=== PATIENT | female | born 1940 | race Hispanic/Latino ===

== ENCOUNTER 2018-04-13 03:01 | Observation (INO) | payer OTHER ==
[2018-04-13] MEDS ORDERED: ONDANSETRON 4 MG/2 ML VIAL ONE ×2 (03:26→07:44)
[2018-04-13] MEDS ORDERED: NA CHLORIDE 0.9% 1,000 ML ONE ×2 (03:26→18:03)
[2018-04-13] MEDS ORDERED: MORPHINE 4 MG/ML SYR ONE (03:26)
[2018-04-13 03:40] LABS: Absolute Lymphocytes (CBC) 2.4 K/uL (0.7-4.9); Absolute Monocytes 0.8 K/uL (0.1-1.3); Absolute Neutrophil 8.2 K/uL (1.8-8.0); Basophils % 0.4 % (0-1.3); Eosinophils % 0.6 % (0-4.4); Hematocrit 38.5 % (36.0-45.0); MCH 30.3 pg (27.0-35.0); MCV 90.8 fL (80-100); Monocytes % 7.2 % (3.3-12.3); RBC Red Blood Cell Count 4.24 M/uL (3.86-4.86)
[2018-04-13 03:57] LABS: Potassium 3.4 mEq/L (3.6-5.0)
[2018-04-13 04:03] LABS: Albumin 4.3 g/dL (3.2-5.5); Bilirubin Direct 0.1 mg/dL (0-0.2); Bilirubin Total 0.5 mg/dL (0.3-1.2); Protein, Total 7.6 g/dL (6.0-8.3)
--- NOTE | 2018-04-13 04:46 | ER ---
Nurse's Notes [facility] Name: Isha Tran Age: 77 yrs Sex: Female : 1940 Arrival Date: 04/13/2018 Time: 03:04 Bed 7 Private MD: Joselito Nguyen E Diagnosis: Left ureteral calculus with hydronephrosis Presentation: 04/13 03:15 Presenting complaint: Patient states: I was diagnosed two weeks ago with a 5mm kidney tl2 stone and it hasn't passed and I'm in a lot of pain. Reports L sided flank pain. Transition of care: patient was not received from another setting of care. Onset of symptoms was March 30, 2018. Initial Sepsis Screen: Does the patient meet any 2 criteria? No. Patient's initial sepsis screen is negative. Does the patient have a suspected source of infection? No. Patient's initial sepsis screen is negative. Care prior to arrival: None. 03:15 Method Of Arrival: Wheelchair tl2 03:15 Acuity: LAWRENCE 3 tl2 Triage Assessment: 03:18 General: Appears in no apparent distress. uncomfortable, Behavior is cooperative, tl2 appropriate for age, anxious. Pain: Complains of pain in left flank Pain radiates to left lower quadrant. Neuro: Level of Consciousness is awake, alert, obeys commands, Oriented to person, place, time, situation. Cardiovascular: Denies chest pain. Respiratory: Airway is patent Respiratory effort is even, unlabored, Respiratory pattern is regular, symmetrical. GI: Reports nausea. :. Derm: Skin is pink, warm \T\ dry. Historical: - Allergies: 03:18 No Known Allergies; tl2 - Home Meds: 03:18 duloxetine 30 mg Oral cpDR 1 cap once daily [Active]; tl2 - PMHx: 03:18 Depression; tl2 - PSHx: 03:18 Cholecystectomy; tl2 - Immunization history:: Adult Immunizations up to date. - Social history:: Smoking status: Patient/guardian denies using tobacco. Screenin:20 Abuse screen: Denies threats or abuse. Nutritional screening: No deficits noted. tl2 Tuberculosis screening: No symptoms or risk factors identified. Fall Risk None identified. Assessment: 03:20 General: see triage assessment. tl2 07:33 GI: Bowel sounds present X 4 quads. Abd is soft X 4 quads. tw2 07:40 Reassessment: Patient appears in no apparent distress at this time. No changes from tw2 previously documented assessment. Patient and/or family updated on plan of care and expected duration. Pain level reassessed. Vital Signs: 03:18 BP 177 / 85; Pulse 79; Resp 18; Temp 97.9(O); Pulse Ox 100% on R/A; Weight 68.04 kg; tl2 Height 5 ft. 4 in. (162.56 cm); Pain 9/10; 04:19 BP 178 / 68; Pulse 72; Resp 17; Pulse Ox 98% ; Pain 2/10; tl1 06:26 BP 137 / 67; Pulse 61; Resp 18; Pulse Ox 98% on R/A; tl1 03:18 Body Mass Index 25.75 (68.04 kg, 162.56 cm) tl2 ED Course: 03:04 Patient arrived in ED. es 03:05 Joselito Nguyen MD is Private Physician. es 03:06 Franco Silva MD is Attending Physician. pkl 03:15 Maya Little, TAVON is Primary Nurse. tl1 03:17 Triage completed. tl2 03:18 Arm band placed on right wrist. tl2 03:20 Patient has correct armband on for positive identification. Placed in gown. Bed in low tl2 position. Call light in reach. Side rails up X 1. Adult w/ patient. 03:20 Inserted saline lock: 20 gauge in right antecubital area, using aseptic technique. tl2 Blood collected. placed by quan Murphy. 03:[address] cw1 03:40 CT completed. Patient tolerated procedure well. Patient moved back from CT. vm2 03:48 CT Stone Protocol In Process Unspecified. EDMS 04:45 Annette Ga MD is Hospitalizing Provider. pkl 07:10 Primary Nurse role handed off by Maya Little, TAVON mw2 07:32 No provider procedures requiring assistance completed. Patient admitted, IV remains in tw2 place. Administered Medications: 03:30 Drug: morphine 4 mg Route: IVP; Site: right antecubital; tl2 03:31 Drug: Zofran 4 mg Route: IVP; Site: right antecubital; tl2 03:31 Drug: NS 0.9% 500 ml Route: IV; Rate: bolus; Site: right antecubital; tl2 03:31 Drug: NS 0.9% 1000 ml Route: IV; Rate: 100 ml/hr; Site: right antecubital; tl2 07:45 Follow up: IV Status: Infusion continued upon admission tw2 07:44 Drug: Zofran 4 mg Route: IVP; Site: right antecubital; tw2 07:45 Follow up: Response: No adverse reaction tw2 Outcome: 04:46 Decision to Hospitalize by Provider. pkl 07:33 Admitted to Med/surg accompanied by nurse, via wheelchair, room 430, with chart, Report tw2 called to TAVON Harmon 07:33 Condition: stable 07:33 Instructed on the need for admit. 07:46 Patient left the ED. tw2 Signatures: Dispatcher [employer] Franco Lott MD MD [facility] Neela Bateman Crystal cw1 Maya Little RN RN tl1 Ermelinda Banuelos RN RN tw2 Harini Donato RN RN tl2 Isabel Manzanares [facility]
--- NOTE | 2018-04-13 04:46 | EDPHYS ---
Physician Documentation [facility] Name: Isha Tran Age: 77 yrs Sex: Female : 1940 Arrival Date: 04/13/2018 Time: 03:04 Bed 7 Private MD: Joselito Nguyen E ED Physician Franco Silva HPI: 04/13 03:24 This 77 yrs old Female presents to ER via Wheelchair with complaints of pkl Possible Kidney Stone. 03:24 The patient complains of pain in the left flank. The pain radiates to the left lower pkl quadrant. Onset: The symptoms/episode began/occurred 2 week(s) ago, and became worse just prior to arrival. Patient was diagnosed with a 5 mm ureteral calculus 2 weeks ago while visiting [facility]. Patient said stone has not passed yet.. Historical: - Allergies: 03:18 No Known Allergies; tl2 - Home Meds: 03:18 duloxetine 30 mg Oral cpDR 1 cap once daily [Active]; tl2 - PMHx: 03:18 Depression; tl2 - PSHx: 03:18 Cholecystectomy; tl2 - Immunization history:: Adult Immunizations up to date. - Social history:: Smoking status: Patient/guardian denies using tobacco. ROS: 03:24 Eyes: Negative for injury, pain, redness, and discharge, ENT: Negative for injury, pkl pain, and discharge, Neck: Negative for injury, pain, and swelling, Cardiovascular: Negative for chest pain, palpitations, and edema, Respiratory: Negative for shortness of breath, cough, wheezing, and pleuritic chest pain, Abdomen/GI: Negative for abdominal pain, nausea, vomiting, diarrhea, and constipation. 03:24 Back: Positive for flank pain, on the left. 03:24 : Negative for urinary symptoms. 03:24 MS/extremity: Negative for acute changes. 03:24 Skin: Negative for rash. 03:24 Neuro: Negative for altered mental status. Exam: 03:24 Head/Face: Normocephalic, atraumatic. Eyes: Pupils equal round and reactive to light, pkl extra-ocular motions intact. Lids and lashes normal. Conjunctiva and sclera are non-icteric and not injected. Cornea within normal limits. Periorbital areas with no swelling, redness, or edema. ENT: Nares patent. No nasal discharge, no septal abnormalities noted. Tympanic membranes are normal and external auditory canals are clear. Oropharynx with no redness, swelling, or masses, exudates, or evidence of obstruction, uvula midline. Mucous membranes moist. Neck: Trachea midline, no thyromegaly or masses palpated, and no cervical lymphadenopathy. Supple, full range of motion without nuchal rigidity, or vertebral point tenderness. No Meningismus. Chest/axilla: Normal chest wall appearance and motion. Nontender with no deformity. No lesions are appreciated. Cardiovascular: Regular rate and rhythm with a normal S1 and S2. No gallops, murmurs, or rubs. Normal PMI, no JVD. No pulse deficits. Respiratory: Lungs have equal breath sounds bilaterally, clear to auscultation and percussion. No rales, rhonchi or wheezes noted. No increased work of breathing, no retractions or nasal flaring. Abdomen/GI: Soft, non-tender, with normal bowel sounds. No distension or tympany. No guarding or rebound. No evidence of tenderness throughout. 03:24 Back: pain, that is moderate, of the left flank. 03:24 Musculoskeletal/extremity: Exam is negative for acute changes. 03:24 Skin: Exam negative for rash. 03:24 Neuro: Orientation: is normal, Mentation: is normal, Memory: Cranial nerves: grossly normal, Motor: is normal. Vital Signs: 03:18 BP 177 / 85; Pulse 79; Resp 18; Temp 97.9(O); Pulse Ox 100% on R/A; Weight 68.04 kg; tl2 Height 5 ft. 4 in. (162.56 cm); Pain 9/10; 04:19 BP 178 / 68; Pulse 72; Resp 17; Pulse Ox 98% ; Pain 2/10; tl1 06:26 BP 137 / 67; Pulse 61; Resp 18; Pulse Ox 98% on R/A; tl1 03:18 Body Mass Index 25.75 (68.04 kg, 162.56 cm) tl2 MDM: 03:06 Patient medically screened. pkl 04:44 Data reviewed: vital signs, nurses notes, lab test result(s), radiologic studies, CT pkl scan. 04/13 03:15 Order name: Amylase, Serum; Complete Time: 04:05 tl1 04/13 03:15 Order name: Basic Metabolic Panel; Complete Time: 04:05 tl1 04/13 03:15 Order name: CBC with Diff; Complete Time: 04:05 tl1 04/13 03:15 Order name: Creatinine for Radiology; Complete Time: 04:05 tl1 04/13 03:15 Order name: Hepatic Function; Complete Time: 04:05 tl1 04/13 03:15 Order name: Lipase; Complete Time: 04:05 tl1 04/13 03:15 Order name: Urine Microscopic Only; Complete Time: 06:55 tl1 04/13 03:24 Order name: CT Stone Protocol pkl 04/13 05:03 Order name: Urine Dipstick--Ancillary (enter results) mw2 04/13 05:12 Order name: Urine Dipstick-Ancillary; Complete Time: 06:55 EDMS 04/13 03:15 Order name: IV Saline Lock; Complete Time: 03:22 tl1 04/13 03:15 Order name: Labs collected and sent; Complete Time: 03:22 tl1 04/13 03:15 Order name: Urine Dipstick-Ancillary (obtain specimen); Complete Time: 04:54 tl1 Administered Medications: 03:30 Drug: morphine 4 mg Route: IVP; Site: right antecubital; tl2 03:31 Drug: Zofran 4 mg Route: IVP; Site: right antecubital; tl2 03:31 Drug: NS 0.9% 500 ml Route: IV; Rate: bolus; Site: right antecubital; tl2 03:31 Drug: NS 0.9% 1000 ml Route: IV; Rate: 100 ml/hr; Site: right antecubital; tl2 07:45 Follow up: IV Status: Infusion continued upon admission tw2 07:44 Drug: Zofran 4 mg Route: IVP; Site: right antecubital; tw2 07:45 Follow up: Response: No adverse reaction tw2 Disposition: 04/13/18 04:46 Hospitalization ordered by Annette Ga for Observation. Preliminary diagnosis is Left ureteral calculus with hydronephrosis. - Bed requested for Telemetry/MedSurg (observation). - Status is Observation. tw2 - Condition is Stable. - Problem is new. - Symptoms have improved. UTI on Admission? No Signatures: Dispatcher [employer] Andria Worthy RN RN kl Franco Silva MD MD pkl Maya Little RN RN tl1 Ermelinda Banuelos RN RN tw2 Harini Donato RN RN tl2 Corrections: (The following items were deleted from the chart) 06:11 04:46 Hospitalization Ordered by Annette Ga MD for Observation. Preliminary kl diagnosis is Left ureteral calculus with hydronephrosis. Bed requested for Telemetry/MedSurg (observation). Status is Observation. Condition is Stable. Problem is new. Symptoms have improved. UTI on Admission? No. pkl 07:46 06:11 04/13/2018 04:46 Hospitalization Ordered by Annette Ga MD for Observation. tw2 Preliminary diagnosis is Left ureteral calculus with hydronephrosis. Bed requested for Telemetry/MedSurg (observation). Status is Observation. Condition is Stable. Problem is new. Symptoms have improved. UTI on Admission? No. kl
[2018-04-13 05:12] LABS: Urine Blood 2+ (NEG); Urine Glucose NEGATIVE (NEG); Urine Protein NEGATIVE (NEG); Urine Specific Gravity 1.015 (1.005-1.030)
[2018-04-13 05:23] LABS: Urine Bacteria >50 /HPF (<20); Urine Culture Reflex Order REFLEXED
--- NOTE | 2018-04-13 05:35 | P.HP ---
Certification for Inpatient Patient admitted to: Observation With expected LOS: <2 Midnights Practitioner: I am a practitioner with admitting privileges, knowledge of patient current condition, hospital course, and medical plan of care. Services: Services provided to patient in accordance with Admission requirements found in Title 42 Section 412.3 of the Code of Federal Regulations Patient History Date of Service: 04/13/18 Reason for admission: left hydronephrosis History of Present Illness: Ms Tran is a 77 years old woman with history of depression, who start about 1 month ago with left flank pain, at that time she was in [facility], where she was seen and diagnosed with a left kidney stone, about 5mm. The recommended to take pain medication and await until the stone pass by its self. In the subsequent week, she continue having left flank pain, so she went to see her PCP , here in town, and had a CT abdomen (03/25/18), showing that the stone has migrated to the left ureter, and she has developed moderate left hydronephrosis. She was recommended to continue pain medication and keep waiting for the stone to pass by itself. Last night, she start with severe left flank pain again radiated to her LLQ, associated with nausea and vomiting, so she came to ED for further evaluation. No history of fever or chills. New CT abdoment was remarkable for left ureteral stone, that has migrated distally compared to the previous CT scan, moderated hydronephrosis is about the same. Lab work remarkable for 11.6K WBC, no fever, elevated lipase and amylase, but normal appearance of pancreas in CT scan. Her BUN and creatinine are WNL. Allergies No Known Allergies Allergy (Verified 03/18/17 07:52) Home Medications: Duloxetine HCl [Cymbalta] 30 mg PO DAILY 03/18/17 Montelukast [Singulair*] 10 mg PO DAILY 03/18/17 Benzonatate [Tessalon Perle*] 200 mg PO TID PRN #30 cap 03/19/17 Budesonide/Formoterol Fumarate [Symbicort 160-4.5 Mcg Inhaler] 2 puff IH BID #1 hfa.aer.ad 03/19/17 Fluticasone [Flonase 50mcg Nasal [place]] 2 sprays NS DAILY #1 btl 03/19/17 Guaifenesin [Mucinex] 1,200 mg PO BID #20 tbmp.12hr 03/19/17 Levofloxacin [Levaquin] 500 mg PO DAILY #7 tab 03/19/17 Multivitamin [Daily Multiple Vitamin] 1 each PO DAILY #90 tablet 03/19/17 Prednisone [Prednisone*] 10 mg PO SEECOM #30 tab 03/19/17 - Past Medical/Surgical History Diabetic: No -: Depression with anxiety -: Seasonal allergies -: Cholecystectomy -: Hysterectomy Psychosocial/ Personal History: She is a . She has 4 children. She does not work. - Family History Father -: Cancer (Lung cancer) - Social History Smoking Status: Never smoker Alcohol use: No CD- Drugs: No Caffeine use: Yes Place of Residence: Home Review of Systems 10-point ROS is otherwise unremarkable Physical Examination - Physical Exam General: Alert, In no apparent distress HEENT: Atraumatic, PERRLA, Mucous membr. moist/pink, EOMI, Sclerae nonicteric Neck: Supple, 2+ carotid pulse no bruit, No LAD, Without JVD or thyroid abnormality Respiratory: Clear to auscultation bilaterally, Normal air movement Cardiovascular: Regular rate/rhythm, Normal S1 S2 Gastrointestinal: Normal bowel sounds, Tenderness (left flank, LLQ) Musculoskeletal: No tenderness Integumentary: No rashes Neurological: Normal speech, Normal strength at 5/5 x4 extr, Normal tone, Normal affect Lymphatics: No axilla or inguinal lymphadenopathy - Studies Laboratory Data (last 24 hrs) 04/13/18 03:10: Creatinine 0.99 04/13/18 03:10: WBC 11.6 H, Hgb 12.8, Hct 38.5, Plt Count 267 04/13/18 03:10: Sodium 136, Potassium 3.4 L, BUN 20, Creatinine 1.00, Glucose 125 H, Total Bilirubin 0.5, AST 28, ALT 18, Alkaline Phosphatase 89, Amylase 141 H, Lipase 91 H Assessment and Plan - Problems (Diagnosis) (1) Hydronephrosis concurrent with and due to calculi of kidney and ureter Current Visit: Yes Status: Acute (2) Hypokalemia Current Visit: No Status: Acute - Plan Ms Tran will be admitted to the hospital under observation due to left ureteral obstructive stone, leading with moderate hydronephrosis. UA is stil pending. No significant signs of systemic infection. Will consult Dr Domínguez, keep her NPO for potential cystoscopy this morning, continue IV fluids and symptomatic medication. - Advance Directives Does patient have a Living Will: No Does patient have a Durable POA for Healthcare: No - Code Status/Comfort Care Code Status Assessed: Yes Code Status: Full Code
[2018-04-13] MEDS ORDERED: Morphine 2 MG/2 ML SYR IV PRN (08:11)
[2018-04-13] MEDS ORDERED: ACETAMINOPHEN 500 MG TAB PO PRN (08:11)
[2018-04-13] MEDS ORDERED: ONDANSETRON 4 MG/2 ML VIAL IV PRN (08:11)
[2018-04-13] MEDS: NA CHLORIDE 0.9% 1,000 ML IV SCH ×2 (08:11→18:11)
[2018-04-13] MEDS: CEFTRIAXONE/SWI 1gm 1 GM/10 ML SYR IV SCH (10:50)
--- NOTE | 2018-04-13 11:11 | RAD REPORT ---
EXAM DESCRIPTION: CT - Stone Protocol - 04/13/2018 6:50 am CLINICAL HISTORY: Abdominal pain. Lower abdominal pain. Urinary frequency COMPARISON: March 25, 2018 TECHNIQUE: Computed axial tomography of the abdomen pelvis was obtained without oral or IV contrast. Lack of IV and oral contrast limits evaluation of solid organs, bowel, and vessels. Coronal reformat taylor images were obtained and reviewed. All CT scans are performed using dose optimization technique as appropriate and may include automated exposure control or mA/KV adjustment according to patient size. FINDINGS: A renal calculus is not seen. Moderate left hydronephrosis is present. An 8 millimeter blanca culus Hounsfield unit 880 has migrated distally into the left ureter. A right renal calculus is not s een. The liver, spleen, pancreas and adrenals appear grossly normal There is no evidence of diverticulitis. The appendix appears normal A 13 millimeter lingular nodule contains a central calcification. It is without obvious change from a CT chest. Chest x-ray. IMPRESSION: 8 millimeter distal left ureteral calculus has migrated distally. Moderate left hydronep hrosis is seen 13 millimeter lingular nodule stable and likely benign. Follow-up CT chest in 1 year is recommended t o reassess stability.
[2018-04-13 12:48] VITALS: BMI 25.7
--- NOTE | 2018-04-13 12:51 | PN ---
Date of Progress Note: 04/13/2018 History: The patient is seen and examined. Chart reviewed and case discussed with RN. The patient states she is still having a significant amount of pain in the left flank, n.p.o. since midnight for possible procedure by Dr. Domínguez. Review of Systems: Negative except as above. Medications: Reviewed. Physical Examination: Vital Signs: Temperature 97.9, heart rate 61, blood pressure 137/67, respirations 18, O2 98% on room air. General: Awake, alert, oriented x3, in mild distress. Elderly female, ill appearing. CV: S1, S2. No murmurs. Regular rate and rhythm. Peripheral pulses present. Respiratory: Clear to auscultation bilaterally. No wheezing. No stridor. No use of accessory musc les. Gastrointestinal: Abdomen is soft, nontender, nondistended. Positive bowel sounds. Left flank pain . Extremities: No clubbing, cyanosis, or edema. Neurologic: Nonfocal. Laboratory Data: Creatinine 0.99. WBC 11.6, H and H 12.8, 38.5, platelets 267. UA shows 2+ blood, negative nitrite, negative leukocyte, 5-10 rbc's, less than 5 wbc's, greater than 50 bacteria. Cultu res pending. Assessment And Plan: A 77-year-old female with: 1.Hydronephrosis, concurrent with pain due to calculi of kidney and ureter on the left. The patient is scheduled for cystoscopy by Dr. Domínguez. We will continue with IV fluids, pain medications, and IV antibiotics. 2.Hypokalemia. Replace and monitor. 3.Depression with anxiety. 4.Gastrointestinal, deep vein thrombosis prophylaxis with PPI and SCDs. No chemical anticoagulation due to anticipated procedure. SA/MODL Voice ID: [id number] Report ID: [id number]
--- NOTE | 2018-04-13 14:23 | CON ---
History Of Present Illness: A 77-year-old pleasant lady with history of depression. She had her lef t flank pain about a month ago when she was in moderate ataxia. At that time she was diagnosed with a 5 mm left kidney stone. She was told to try to pass it. She says since that time she has not had any pain over the last month and then last night the pain became very severe with level of 10/10 asso ciated with nausea. No vomiting, no fever, no chills. New CAT scan showed a 5 mm stone in the left distal ureter close to the ureterovesical junction. The patient's white count is stable. No fever. I gave her all the options of watchful waiting versus stent versus ureteroscopy and extraction. She wishes to have something more definitive done at this time. Allergies: NO KNOWN DRUG ALLERGIES. Home Medications: Cymbalta 30 mg p.o. daily for depression. Past Medical History: Depression. No diabetes. Some seasonal allergies. Past Surgical History: Cholecystectomy, hysterectomy. Psychosocial/personal History: , has 4 children. Does not work. Family History: Father had lung cancer. Social History: Never smoked. No alcohol. No drug use. Does use some caffeine and drinks sodas. Lives at residence home. Review of Systems: A 10-point review of systems otherwise unremarkable. Physical Examination: Vital Signs: Temperature 97.6, pulse 59, respirations 16, BP 147/69, sats 100% on room air. HEENT: Atraumatic, normocephalic. Lungs: Clear. Heart: S1, S2. Abdomen: Soft, nontender. Minimal left flank tenderness. Extremities: Normal range of motion. Laboratory Data: White count 11.6, H and H 12.8 and 38.5, platelets 267. Chemistry; sodium 136, pot assium 3.4, chloride 105, carbon dioxide 21, creatinine 1.1. GFR estimated to be 54, glucose 125. A mylase 141, lipase 91. UA shows pH 6.0, specific gravity 1.015, blood 2+, rbcs 5-10, bacteria greate r than 15, squamous epithelial cells less than 5. Assessment: A 5 mm left distal urolithiasis causing pain. The patient is on Rocephin and morphine f or pain. All the options were reviewed with the patient. She wishes to have cystoscopy, left retrog rade pyelogram, ureteroscopy, stone extraction, and stent placement. She understood all the risks an d benefits and wishes to proceed. We will be taking her at 2:30 this afternoon for the procedure. S he has been n.p.o. more than 8 hours. KENNETH/CATHY Voice ID: [id number] Report ID: [id number]
[2018-04-13] MEDS ORDERED: PROPOFOL 200 MG/20 ML VIAL IV ONE (16:20)
[2018-04-13] MEDS ORDERED: MIDAZOLAM HCL 2 MG/2 ML INJ ONE (16:20)
[2018-04-13] MEDS ORDERED: FENTANYL CITR 100 MCG/2 ML ONE (16:20)
[2018-04-13] MEDS ORDERED: LIDOCAINE 2% MPF 5 ML VIAL ONE (16:21)
[2018-04-13] MEDS ORDERED: METOCLOPRAMIDE 10 MG/2mL INJ ONE (16:22)
[2018-04-13] MEDS ORDERED: Ringers Lactate 1,000 ML IV ONE (18:02)
[2018-04-13 18:19] VITALS: O2SAT 97
--- NOTE | 2018-04-13 18:20 | OP ---
Surgeon: Fatoumata Domínguez MD Anesthesiologist: Dr. Rizo. Preoperative Diagnosis: A 5 mm left distal urolithiasis. Postoperative Diagnosis: A 5 mm left distal urolithiasis. Procedures Performed: Cystoscopy, left retrograde pyelogram, semi-rigid ureteroscopy, manipulation / attempted fragmentation and basket removal of stone , and cysto-stent placement, 6 x 24 cm with string left attached to the meatus. Insertion of Ware catheter #[id number]. Anesthesia: General. Ebl: Minimal. Replacement: See record. Path Specimen: Stone. Complications: None. Drains: Ware catheter. Indication: Isha Tran has been having a stone present for a month, she is not able to pass the 5 mm stone, presented with severe pain last night to the ER. She was made n.p.o., given all the general information, alternatives, and risks. She wishes to have the stone extracted. She is tired of trying to pass it. Description Of Procedure: Proper informed consent was obtained. She was properly identified and taken to the operative suite, placed in a supine lithotomy position. There area was prepped and draped in usual sterile fashion. We entered the bladder with a 21-Beninese obturator and then scoped the bladder with a 70-degree lens, found some small benign petechiae in her bladder , possible from previous UTIs. The left orifice was found and cannulated with a 5-Beninese ureteral catheter. Retrograde pyelogram was performed, did not see a stone per se, nor any filling defect, but we went ahead and dilated the ureter , placed this semi-rigid ureteroscope and found the stone. It was then manipulated but unable to fragment and thus extracted and removed and we went ahead again and did another second ureteroscopy showing that the ureter was clear and then the 24 6-Beninese double-J stent was placed in standard fashion. Ware catheter was placed. Bladder was drained. The patient went to recovery room in stable condition. KENNETH/CATHY Voice ID: [id number] Report ID: [id number] [place]ER[place]
--- NOTE | 2018-04-13 22:12 | P.PN ---
Subjective Date of Service: 04/13/18 Chief Complaint: left hydronephrosis Physical Examination - Vital Signs Temperature: 97.4 F Blood Pressure: 156/58 Pulse: 60 Respirations: 20 Pulse Ox (%): 96 - Studies Laboratory Data (last 24 hrs) 04/13/18 03:10: Creatinine 0.99 04/13/18 03:10: WBC 11.6 H, Hgb 12.8, Hct 38.5, Plt Count 267 04/13/18 03:10: Sodium 136, Potassium 3.4 L, BUN 20, Creatinine 1.00, Glucose 125 H, Total Bilirubin 0.5, AST 28, ALT 18, Alkaline Phosphatase 89, Amylase 141 H, Lipase 91 H Assessment & Plan - Problems (Diagnosis) (1) Urolithiasis Current Visit: Yes Status: Acute Qualifiers: Urinary calculus location: ureter Qualified Code(s): N20.1 - Calculus of ureter (2) Hydronephrosis concurrent with and due to calculi of kidney and ureter Current Visit: Yes Status: Acute (3) Hypokalemia Current Visit: No Status: Acute (4) Depression with anxiety Current Visit: No Status: Chronic
[2018-04-14] MEDS: NA CHLORIDE 0.9% 1,000 ML IV SCH (04:13)
[2018-04-14 05:27] LABS: Absolute Lymphocytes (CBC) 2.1 K/uL (0.7-4.9); Absolute Monocytes 0.5 K/uL (0.1-1.3); Absolute Neutrophil 3.1 K/uL (1.8-8.0); Basophils % 0.4 % (0-1.3); Eosinophils % 1.2 % (0-4.4); Hematocrit 33.5 % (36.0-45.0); Lymphocytes % 36.6 % (15.3-44.8); MCH 30.2 pg (27.0-35.0); MCV 91.6 fL (80-100); MPV 8.7 fL (7.6-11.3); Monocytes % 7.9 % (3.3-12.3); RBC Red Blood Cell Count 3.65 M/uL (3.86-4.86)
[2018-04-14 05:47] LABS: Potassium 3.8 mEq/L (3.6-5.0)
[2018-04-14] MEDS: CEFTRIAXONE/SWI 1gm 1 GM/10 ML SYR IV SCH (09:00)
[2018-04-14 12:39] VITALS: BP 143/65; TEMP 98.6
--- NOTE | 2018-04-14 13:56 | P.DS ---
Admission Date: 04/13/18 Discharge Date: 04/14/18 Primary Care Provider: Dr. Nguyen Disposition: ROUTINE DISCHARGE Discharge Condition: GOOD Reason for Admission: left hydronephrosis Consultations: Urology-Dr. Domínguez Procedures: CT scan: FINDINGS: A renal calculus is not seen. Moderate left hydronephrosis is present. An 8 millimeter calculus Hounsfield unit 880 has migrated distally into the left ureter. A right renal calculus is not seen. The liver, spleen, pancreas and adrenals appear grossly normal There is no evidence of diverticulitis. The appendix appears normal A 13 millimeter lingular nodule contains a central calcification. It is without obvious change from a CT chest. Chest x-ray. IMPRESSION: 8 millimeter distal left ureteral calculus has migrated distally. Moderate left hydronephrosis is seen 13 millimeter lingular nodule stable and likely benign. Follow-up CT chest in 1 year is recommended to reassess stability. Surgery: Surgeon: Fatoumata Domínguez MD Anesthesiologist: Dr. Rizo. Preoperative Diagnosis: A 5 mm left distal urolithiasis. Postoperative Diagnosis: A 5 mm left distal urolithiasis. Procedures Performed: Cystoscopy, left retrograde pyelogram, semi-rigid ureteroscopy, manipulation / attempted fragmentation and basket removal of stone , and cysto-stent placement, 6 x 24 cm with string left attached to the meatus. Insertion of Ware catheter #[id number]. Anesthesia: General. Ebl: Minimal. Path Specimen: Stone. Complications: None. - Problems (1) Urolithiasis Current Visit: Yes Status: Acute Qualifiers: Urinary calculus location: ureter Qualified Code(s): N20.1 - Calculus of ureter (2) Hydronephrosis concurrent with and due to calculi of kidney and ureter Onset Date: 04/14/18 Current Visit: Yes Status: Acute (3) Hypokalemia Onset Date: 04/14/18 Current Visit: Yes Status: Acute (4) Depression with anxiety Current Visit: No Status: Chronic (5) UTI (urinary tract infection) Current Visit: Yes Status: Acute Qualifiers: Urinary tract infection type: site unspecified Hematuria presence: without hematuria Qualified Code(s): N39.0 - Urinary tract infection, site not specified (6) Lung nodule Current Visit: Yes Status: Acute Brief History of Present Illness: 77-year-old female presented emergency room with left flank pain. CT scan revealed left ureteral stone with hydronephrosis. UTI was also identified. Patient admitted for further evaluation and treatment. Hospital Course: Patient was admitted. An 8 mm distal left ureteral calculus was noted left hydronephrosis noted. CT scan also showed a 13 mm lingular nodule stable on likely benign. The patient was evaluated by urology. Cystoscopy was recommended. This was done. Uteroscopy was also done. Manipulation and attempt for fragment and basket was done. Patient tolerated procedure well. Postop patient did well. No complaints noted. Patient found to have UTI. At discharge patient will continue with Keflex 5 mg 1 pill daily for 7 days. Tramadol 50 mg 1 pill 3 times a day as needed for pain will be provided. Recommendation is for the patient follow up with urology within 1 week to follow her progress. Recommendation on follow up for the lung nodule is recommended. Recommendation is to repeat CT chest in 1 year to monitor stability. Patient may follow up with pulmonology as an outpatient to further monitor. Vital Signs/Physical Exam: Temp Pulse Resp BP Pulse Ox 98.6 F 62 18 143/65 H 97 04/14/18 12:00 04/14/18 12:00 04/14/18 12:00 04/14/18 12:00 04/14/18 12:00 General: Alert, In no apparent distress, Oriented x3, Cooperative HEENT: Atraumatic Neck: Supple Respiratory: Clear to auscultation bilaterally, Normal air movement Cardiovascular: Normal pulses, Regular rate/rhythm Gastrointestinal: Normal bowel sounds, Soft and benign, Non-distended, No tenderness, No masses, No rebound, No guarding Musculoskeletal: No erythema, No tenderness, No warmth Integumentary: No tenderness/swelling, No erythema, No warmth, No cyanosis Neurological: Normal speech, Normal strength at 5/5 x4 extr, Normal tone, Normal affect Laboratory Data at Discharge: WBC 5.8 K/uL (4.3-10.9) D 04/14/18 04:54 Hgb 11.0 g/dL (12.0-15.0) L 04/14/18 04:54 Hct 33.5 % (36.0-45.0) L 04/14/18 04:54 Plt Count 236 K/uL (152-406) 04/14/18 04:54 Sodium 142 mEq/L (135-145) 04/14/18 04:59 Potassium 3.8 mEq/L (3.6-5.0) 04/14/18 04:59 BUN 17 mg/dL (6-20) 04/14/18 04:59 Creatinine 0.84 mg/dL (0.44-1.00) 04/14/18 04:59 Glucose 91 mg/dL (65-120) 04/14/18 04:59 Total Bilirubin 0.5 mg/dL (0.3-1.2) 04/13/18 03:10 AST 28 IU/L (10-42) 04/13/18 03:10 ALT 18 IU/L (10-60) 04/13/18 03:10 Alkaline Phosphatase 89 IU/L (42-121) 04/13/18 03:10 Amylase 141 U/L (28-100) H 04/13/18 03:10 Lipase 91 U/L (22-51) H 04/13/18 03:10 Home Medications: Cephalexin [Keflex] 500 mg PO DAILY #7 cap 04/14/18 Tramadol HCl [Ultram] 50 mg PO TIDP PRN #15 tablet 04/14/18 New Medications: Cephalexin [Keflex] 500 mg PO DAILY #7 cap Tramadol HCl [Ultram] 50 mg PO TIDP PRN #15 tablet PRN Reason: Pain Patient Discharge Instructions: 1. Patient will need to follow up the PCP in 1 week to follow up this hospitalization. 2. Patient found to have ureteral stone with hydronephrosis. Patient had procedure to remove stone. Patient has done well. Patient evaluated and seen by urology. At discharge patient will continue with Keflex 500 mg 1 pill daily for 7 days. Tramadol 50 mg 1 pill 3 times a day as needed for pain will be provided. Recommendation is for the patient follow up with urology as directed. 3. Patient found to have a lung nodule. This appears benign. Recommendation is to repeat CT scan in 1 year to monitor stability. Recommendation is for the patient follow up with pulmonology as an outpatient to further monitor. Diet: AHA Activity: Ad aristeo Followup: Fatoumata Domínguez MD [ACTIVE - CAN ADMIT] - 04/17/18 Time spent managing pt's care (in minutes): 55
--- NOTE | 2018-04-14 17:16 | PN ---
Subjective: The patient feels great. No more pain. Objective: Ware's catheter has clear urine. Vital signs: Afebrile, stable. Assessment: Status post ureteroscopy stone extraction with stent placement. Plan: The patient go home. She is to follow up with me on in about 4 days to remove the stent which has a string. She will go home on Ultram 50 mg home and Keflex 500 mg once a day #7. KENNETH/CATHY Voice ID: [id number] Report ID: [id number] MTDD
--- NOTE | 2018-05-08 13:53 | RAD REPORT ---
EXAM DESCRIPTION: RAD - Urethrocystogrphy Retrograde - 04/25/2018 11:46 am CLINICAL HISTORY: Ureteral stone. COMPARISON: None. FINDINGS: Fluoroscopic imaging of the abdomen as part of a left-sided ureteral stent placement is wharton bmitted. Details of the procedure not available. Total fluoro time 1 minutes 30 seconds.
== END 2018-04-14 15:38 | disposition home or self-care (01) ==
LOC: ER 03:01 → ERHOLD 04:40 → 4TH 06:13
PROVIDERS: ADMIT Internal Medicine; ATTEND Internal Medicine
PROC: 0T778DZ Dilation of Left Ureter with Intraluminal Device, Via Natural or Artificial Opening Endoscopic (ICD-10-PCS; 2018-04-13)
PROC: 0TC78ZZ Extirpation of Matter from Left Ureter, Via Natural or Artificial Opening Endoscopic (ICD-10-PCS; principal; 2018-04-13 16:30)
DX: N13.2 Hydronephrosis with renal and ureteral calculous obstruction (principal); E87.6 Hypokalemia; F41.8 Other specified anxiety disorders; N39.0 Urinary tract infection, site not specified; R91.1 Solitary pulmonary nodule
CPT/HCPCS: 36415 ×2; 51610; 52332; 52352; 74176; 74450; 76377; 80048 ×2; 80076; 82150; 83690; 85025 ×2; 87077 ×2; 87086; 87088; 87186 ×2; 88300; 96361; 96374; 96375; 99285; G0378 ×2; J0696 ×2; J2250; J2270; J2405 ×2; J2765; J3010; J7030 ×3; Q9967; 81003; 81015; 82360

== ENCOUNTER 2021-08-03 19:39 | Emergency (ER) | payer OTHER ==
--- OUTSIDE RECORDS SUMMARY | 2021-08-03 19:41 | XMS REPORT | Continuity of Care Document ---
:1940 Author Organization [facility] t Address [address] [place] [address] Care Team Providers Name Role Phone Saad Nguyen Primary Care Physician LESVIA SAAB Attending Clinician Unavailable RICHARD Attending Clinician Unavailable Nancy PARHAM Attending Clinician Radiology Attending Clinician Unavailable Doctor Unassigned, Name Attending Clinician Unavailable Kirsty RBYANT, L Attending Clinician Payers Payer Name Policy Type Policy Number Effective Date Expiration Date [place] [facility] MEDICARE [id number] 2020 ADVANTAGE 00:00:00 Problems Condition Condition Condition Status Onset Resolution Last Treating Co mments Source Name Details Category Date Date Treatment Clinician Date Osteoporos Osteoporos Disease Active [facility] T is is Health Allergies, Adverse Reactions, Alerts Allergy Allergy Status Severity Reaction(s) Onset Inactive Treating Comm ents Source Name Type Date Date Clinician Aspirin Allergy Active [place] to 8-05 Health substanc 00:00: e 00 Milk Propensi Active [facility] Protein ty to 5-12 Health adverse 00:00: reaction 00 s Social History Social Habit Start Date Stop Date Quantity Comments Source Exposure to Not sure [facility] SARS-CoV-2 (event) Tobacco use and 2021-07-28 2021-07-28 Never used [facility] exposure 00:00:00 00:00:00 Alcohol intake 2021-07-28 2021-07-28 Ex-drinker [facility] 00:00:00 00:00:00 (finding) Sex Assigned At [birth year] [facility] 00:00:00 00:00:00 Smoking Status Start Date Stop Date Source Never smoker [facility] Medications Ordered Filled Start Stop Current Ordering Indication Dosage Frequency Signature Comments Components Source Medication Medication Date Date Medication? Clinician (SIG) Name Name Multiple Yes 1{tbl} QD Take 1 [facility] Vitamins-Mi 5-12 tablet by [facility] nerals 14:15: mouth 1 (CENTRUM 14 (one) time SILVER each day. 50+WOMEN PO) Evenity 105 Yes 210mg Q30D Inject 210 UT MG/1.17ML 5-03 mg under Health solution 00:00: the skin prefilled 00 every 30 syringe (thirty) days. romosozumab 2019-11 Yes Inject TWO UT -aqqg 0-28 105 MG/ Health (Evenity) 00:00: 1.17 ML 105 00 prefilled MG/1.17ML syringes solution subcutaneo prefilled us every syringe month. Procedures This patient has no known procedures. Encounters Start End Encounter Admission Attending Care Care Encounter Source Date/Time Date/Time Type Type Clinicians Facility Department ID 2021-06-01 Outpatient [facility] [id number] [place] 14:44:37 [facility] 2021-06-01 Outpatient [facility] [id number] [place] 14:01:50 [facility] 2021-05-01 Outpatient [facility] [id number] [place] 14:34:52 [facility] 2021-04-03 Outpatient [facility] [id number] [place] 15:38:31 [facility] 2021-04-01 Outpatient RICHARD [facility] [id number] [place] 02:55:33 [facility] 2021-07-28 2021-07-28 Office UBALDO Cruz [facility] [id number] [place] 12:49:08 13:35:33 Visit Miriam AGUIRRE [id number] [facility] MEDICAL [id number] [address] 2 [id number] 2021-07-28 2021-07-28 Office UBALDO Cruz [facility] [id number] 12:49:08 13:35:33 Visit Miriam AGUIRRE [id number] MEDICAL [id number] [address] 8 [id number] 2021-06-29 2021-06-29 Procedure Lesvia [facility] [id number] 12:48:17 13:27:43 Visit TIMOTHY Saab [id number] [place] MEDICAL [id number] [address] 0 [id number] 2021-06-01 2021-06-01 Procedure Lesvia [facility] [id number] 14:01:43 14:44:49 Visit TIMOTHY Saab [id number] [facility] [id number] [address] 4 [id number] 2021-05-01 2021-05-01 Office Aracely Hill [facility] [id number] 14:21:18 14:36:24 Visit TIMOTHY [id number] MEDICAL [id number] [place] 7 [id number] 2021-04-03 2021-04-03 Office [place]ely Hill [facility] [id number] 15:25:46 15:38:44 [facility] [id number] MEDICAL [id number] [place] 4 [id number] 2019-12-30 2019-12-30 [facility] Radiology [facility] [id number] 13:32:00 23:59:00 Encounter John [id number] [place] 4.2.7.2.686 [place] [id number] 2019-12-30 2019-12-30 Orders Doctor ORTEGA [id number] 00:00:00 00:00:00 Only Unassigned, SAHIL [id number] [place] [facility] [id number] [id number] 2019-07-30 2019-07-30 Orders Doctor SHANNON [id number] 00:00:00 00:00:00 Only Unassigned, SAHIL [id number] [place] [address]686 [id number] 2019-07-25 2019-07-25 Oswaldo Lofton [facility] [id number] 00:00:00 00:00:00 [facility] [id number] Surgical [id number] [facility] [id number] [place] 2019-07-17 2019-07-17 Orders Doctor SHANNON [id number] 00:00:00 00:00:00 Only Unassigned, SAHIL [id number] [place] [address]686 [id number] 2019-06-22 2019-06-22 Orders Doctor SHANNON [id number] 00:00:00 00:00:00 Only Unassigned, SAHIL [id number] [place] [address]686 [id number] Results This patient has no known results.
[2021-08-03] MEDS ORDERED: MORPHINE 4 MG/ML SYR ONE ×2 (20:24→21:14)
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
[2021-08-03] MEDS ORDERED: ONDANSETRON 4 MG/2 ML VIAL ONE (20:25)
--- NOTE | 2021-08-03 21:08 | RAD REPORT ---
EXAM DESCRIPTION: RAD - Forearm Left - 08/03/2021 8:37 pm CLINICAL HISTORY: DEFORMITY COMPARISON: No comparisons FINDINGS: Distal radial impaction fracture with marked volar displacement by several shafts width an d significant overriding. The fracture primarily involves the metaphysis. The displaced distal fragme nt includes the epiphysis and hand. Suspect ulnar styloid fracture is well. IMPRESSION: Significantly displaced distal radial impaction fracture with overriding.
[2021-08-03] MEDS ORDERED: NA CHLORIDE 0.9% 100 ML ONE (21:14)
[2021-08-03] MEDS ORDERED: CEFAZOLIN/SWI 1gm 1 GM/10 ML SYR ONE (21:15)
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
[2021-08-03 21:47] VITALS: TEMP 98
[2021-08-03 21:48] VITALS: BP 178/68; O2SAT 98
[2021-08-03 22:02] LABS: Potassium 3.8 mmol/L (3.5-5.1)
[2021-08-03 22:11] LABS: Absolute Lymphocytes (CBC) 1.9 K/uL (0.7-4.9); Basophils % 0.2 % (0-1.3); Hematocrit 36.2 % (36.0-45.0); Lymphocytes % 18.5 % (15.3-44.8); MPV 8.4 fL (7.6-11.3); RBC Red Blood Cell Count 3.95 M/uL (3.86-4.86)
== END 2021-08-03 21:34 | disposition short-term general hospital (02) ==
LOC: ER 19:39
PROC: 2W3DX1Z Immobilization of Left Lower Arm using Splint (ICD-10-PCS; principal; 2021-08-03)
DX: S52.502B Unspecified fracture of the lower end of left radius, initial encounter for open fracture type I or II (principal); S52.612B Displaced fracture of left ulna styloid process, initial encounter for open fracture type I or II; V18.0XXA Pedal cycle driver injured in noncollision transport accident in nontraffic accident, initial encounter; F32.9 Major depressive disorder, single episode, unspecified
CPT/HCPCS: 93005; 85025; 80048; 36415; 86900; 86850; 82565; 86901; 70450; 72125; 71260; 74177; 73090; 96375; 96374; 99285; 29125; Q9967; J0690; J2405

== ENCOUNTER 2023-09-23 16:09 | Emergency (ER) | payer OTHER ==
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
[2023-09-23 16:41] LABS: Specific Gravity 1.008 (1.005-1.030); Urine Bacteria >50 /HPF (<20); Urine Bilirubin NEGATIVE (Negative); Urine Blood Negative (Negative); Urine Clarity Turbid (Clear); Urine Color Colorless (Yellow); Urine Glucose NEGATIVE (Negative); Urine Mucus Slight /HPF (None Seen); Urine Protein NEGATIVE (Negative); Urine RBC <5 /HPF (None Seen); Urine Urobilinogen Normal (Normal); Urine WBC Clump Rare /HPF (None Seen); Urine pH 6.5 (5.0-7.0)
[2023-09-23] MEDS ORDERED: NA CHLORIDE 0.9% 1,000 ML ONE (16:58)
[2023-09-23] MEDS ORDERED: ONDANSETRON 4 MG/2 ML VIAL ONE (16:58)
[2023-09-23] MEDS ORDERED: MORPHINE 4 MG/ML SYR ONE (16:58)
[2023-09-23 17:41] LABS: Absolute Lymphocytes (CBC) 2.9 K/uL (0.7-4.9); Hematocrit 38.1 % (36.0-45.0); Lymphocytes % 39.2 % (15.3-44.8); MCV 91.4 fL (80-100); MPV 8.3 fL (7.6-11.3); Platelets 260 thou/uL (152-406); RBC Red Blood Cell Count 4.17 M/uL (3.86-4.86)
[2023-09-23 18:03] LABS: Albumin 4.1 g/dL (3.4-5.0); Bilirubin Total 0.3 mg/dL (0.2-1.0); Potassium 3.6 mEq/L (3.5-5.1); Protein, Total 7.8 g/dL (6.4-8.2); Troponin High Sensitivity 7.1 pg/mL (<58.9)
--- NOTE | 2023-09-23 19:07 | RAD REPORT ---
EXAM DESCRIPTION: CTAbdomen Pelvis W Contrast - 09/23/2023 6:59 pm CLINICAL HISTORY: Abdominal pain. ABD PAIN COMPARISON: <Comparisons> TECHNIQUE: Biphasic CT imaging of the abdomen and pelvis was performed with 100 ml non-ionic IV cont rast. All CT scans are performed using dose optimization technique as appropriate and may include automated exposure control or mA/KV adjustment according to patient size. FINDINGS: The lung bases are clear. The liver demonstrates diffuse fatty infiltration. Cholecystectomy clips. Spleen, pancreas, adrenal g lands and kidneys are within normal limits. No bowel obstruction, free air, free fluid or abscess. The appendix is normal. No evidence of signi ficant lymphadenopathy. Mild lumbar degenerative changes. IMPRESSION: No acute intra-abdominal or pelvic finding. Diffuse fatty liver.
--- NOTE | 2023-09-23 19:23 | EDPHYS ---
Physician Documentation [facility] Name: Isha Tran Age: 83 yrs Sex: Female : 1940 Arrival Date: 09/23/2023 Time: 16:09 Bed 2 Private MD: Joselito Nguyen E ED Physician Ata Chi HPI: 09/23 16:36 This 83 yrs old Female presents to ER via Wheelchair with complaints of ec2 Possible Kidney Stone. 16:36 . ec2 16:37 Patient arrives today due to concern for left-sided upper abdominal pain. Patient ec2 reports that the pain started just after lunch, just after she had finished eating. Patient reports some associated nausea without vomiting. Patient reports no diarrheal symptoms. Reports a history of a kidney stone and states it feels similar. Patient reports previous abdominal surgeries including cholecystectomy. Patient denies any reported urinary problems.. Historical: - Allergies: 16:19 No Known Allergies; ap3 - PMHx: 16:19 Depression; ap3 - Immunization history:: Client reports receiving the 2nd dose of the Covid vaccine. - Social history:: Smoking status: Patient denies any tobacco usage or history of. ROS: 16:37 Constitutional: as per hpi ec2 Exam: 16:37 Constitutional: GEN: NAD Head: atraumatic Eyes: EOMI Ears: External ears are ec2 normal. CV: regular rate LUNGS: no respiratory distress ABD: non-distended, soft, nontender, no guarding, nonrigid, negative flanks bilaterally. SKIN: no evidence of rashes MSK: no evidence of trauma NEURO: moves all extremities equally Vital Signs: 16:17 BP 185 / 71; Pulse 66; Resp 18; Temp 98.7; Pulse Ox 100% ; Weight 61.69 kg; Pain 10/10; ap3 18:00 BP 175 / 67; Pulse 63; Resp 15; Pulse Ox 99% ; jl7 19:10 BP 143 / 56; Pulse 77; Resp 19; Pulse Ox 100% ; Pain 1/10; jj7 16:17 Pain Scale: Adult ap3 19:10 Pain Scale: Adult jj7 MDM: 16:17 Patient medically screened. ec2 16:37 ED course: Patient arrives today due to concern for left-sided abdominal pain. ec2 Examination remarkable for uncomfortable appearing individual who has a reassuring abdominal exam. Will obtain lab work, urine studies, treat the patient symptoms with crystalloid, morphine, Zofran and obtain a CT scan. Currently considering ureteral stone, pyelonephritis, intra-abdominal infection, pancreatitis.. 18:12 Data reviewed: vital signs. ED course: Patient's urine is remarkable for some bacteria ec2 and leuk esterase present. Metabolic profile with appropriate renal function, slightly diminished GFR, CBC is reassuring, lipase within normal ranges, troponin within normal ranges. . 18:30 ED course: EKG independently reviewed and interpreted by me, shows normal sinus rhythm, ec2 rate of 56, no acute ST segment elevations, nonconcerning intervals.. 19:15 ED course: CT abdomen pelvis with no acute intra-abdominal process identified. Will ec2 discharge home, return precautions given. Possible gastritis given that the pain occurred shortly after p.o. intake. Will discharge home, instructed to follow-up with primary care doctor. . 09/23 16:21 Order name: Urine W/Microscopic (UAM); Complete Time: 18:11 ap3 09/23 16:36 Order name: CBC with Diff; Complete Time: 18:11 ec2 09/23 16:36 Order name: CMP; Complete Time: 18:11 ec2 09/23 16:36 Order name: Lipase; Complete Time: 18:11 ec2 09/23 16:37 Order name: Troponin High Sensitivity; Complete Time: 18:11 ec2 09/23 16:36 Order name: CT Abd/Pelvis - IV Contrast Only; Complete Time: 19:15 ec2 09/23 16:37 Order name: EKG; Complete Time: 16:37 ec2 09/23 16:36 Order name: IV Saline Lock; Complete Time: 17:53 ec2 09/23 16:36 Order name: Labs collected and sent; Complete Time: 17:54 ec2 09/23 16:37 Order name: EKG - Nurse/Tech; Complete Time: 18:23 ec2 Administered Medications: 17:58 Drug: NS 0.9% IV 1000 ml IV at 1 bolus Per protocol; 1000 mL bolus Route: IV; Rate: 1 mb9 bolus; Site: left antecubital; 19:52 Follow up: IV Status: Completed infusion jj7 17:58 Not Given (Patient Refused): ondansetron 4 mg IVP once; over 2 minutes mb9 17:58 Not Given (Patient Refused): morphineor iv 4 mg IVP once over 4 mins mb9 Disposition Summary: 09/23/23 19:22 Discharge Ordered Condition: Stable ec2 Diagnosis - Flank Pain ec2 Discharge Instructions: - Discharge Summary Sheet ec2 - Flank Pain, Adult, [id number] ec2 Forms: - Medication Reconciliation Form ec2 - Thank You Letter ec2 - Antibiotic Education ec2 - Prescription Opioid Use ec2 - Patient Portal Instructions ec2 - Leadership Thank You Letter ec2 Signatures: Dispatcher [employer] Leora Lemus RN RN ap3 Sirisha Castaneda RN RN mb9 Ata Chi MD MD ec2 Will Link RN jj7
--- NOTE | 2023-09-23 19:23 | ER ---
Nurse's Notes [facility] Name: Isha Tran Age: 83 yrs Sex: Female : 1940 Arrival Date: 09/23/2023 Time: 16:09 Bed 2 Private MD: Joselito Nguyen E Diagnosis: Flank Pain Presentation: 09/23 16:17 Chief complaint: Patient states: she started having left sided abdominal pain that ap3 started this afternoon. patient rates pain to be a 10/10 on the pain scale. patient states she has a history of kidney stones and this feels similar to how she has felt in the past. Coronavirus screen: At this time, the client does not indicate any symptoms associated with coronavirus-19. Ebola Screen: No symptoms or risks identified at this time. Initial Sepsis Screen: Does the patient meet any 2 criteria? No. Patient's initial sepsis screen is negative. Does the patient have a suspected source of infection? Yes: Acute abdominal pain. Risk Assessment: Do you want to hurt yourself or someone else? Patient reports no desire to harm self or others. Onset of symptoms was September 23, 2023. 16:17 Method Of Arrival: Wheelchair ap3 16:17 Acuity: LAWRENCE 3 ap3 Triage Assessment: 16:19 General: Appears uncomfortable, Behavior is cooperative. Pain: Complains of pain in ap3 left flank, left lower abd. Neuro: Level of Consciousness is awake, alert, obeys commands, Oriented to person, place, time, situation. Cardiovascular: Patient's skin is warm and dry. Respiratory: Airway is patent Respiratory effort is even, unlabored, Respiratory pattern is regular, symmetrical. GI: Reports lower abdominal pain. : Reports pain in left flank(s). Historical: - Allergies: 16:19 No Known Allergies; ap3 - PMHx: 16:19 Depression; ap3 - Immunization history:: Client reports receiving the 2nd dose of the Covid vaccine. - Social history:: Smoking status: Patient denies any tobacco usage or history of. Screenin:20 [facility] ED Fall Risk Assessment (Adult) History of falling in the last 3 months, ap3 including since admission No falls in past 3 months (0 pts). Abuse screen: Denies threats or abuse. Nutritional screening: No deficits noted. Tuberculosis screening: No symptoms or risk factors identified. Assessment: 15:55 Reassessment: Pt refuses pain medication. Pt states, "I don't have any pain and I'm not mb9 nauseous.". 16:45 Reassessment: Transported pt to restroom via wheelchair. jl7 17:00 Reassessment: Transported pt back to ER room 2 via wheelchair. jl7 17:05 General: Appears in no apparent distress. uncomfortable, Behavior is cooperative, jl7 fussy. Pain: Complains of pain in right flank Pain currently is 10 out of 10 on a pain scale. Neuro: Level of Consciousness is awake, alert, obeys commands, Oriented to person, place, time, situation. Cardiovascular: Patient's skin is warm and dry. Respiratory: Airway is patent Respiratory effort is even, unlabored, Respiratory pattern is regular, symmetrical. : Denies burning with urination, pain with urination. Derm: Skin is pink, warm \\T\\ dry. 19:10 GI: Abd is soft and non tender X 4 quads. Abd is non tender X 4 quads. jj7 Vital Signs: 16:17 BP 185 / 71; Pulse 66; Resp 18; Temp 98.7; Pulse Ox 100% ; Weight 61.69 kg; Pain 10/10; ap3 18:00 BP 175 / 67; Pulse 63; Resp 15; Pulse Ox 99% ; jl7 19:10 BP 143 / 56; Pulse 77; Resp 19; Pulse Ox 100% ; Pain 1/10; jj7 16:17 Pain Scale: Adult ap3 19:10 Pain Scale: Adult jj7 ED Course: 16:11 Patient arrived in ED. rg4 16:11 Joselito Nguyen MD is Private Physician. rg4 16:17 Ata Chi MD is Attending Physician. ec2 16:19 Triage completed. ap3 16:20 Arm band placed on right wrist. ap3 16:28 Analisa Lopez RN is Primary Nurse. jl7 17:10 Missed attempt(s): 22 gauge in left antecubital area. Bleeding controlled, band aid jl7 applied, catheter tip intact. 17:15 Missed attempt(s): 20 gauge in right antecubital area. Bleeding controlled, band aid jl7 applied, catheter tip intact. 17:20 Missed attempt(s): 20 gauge in right antecubital area. Bleeding controlled, band aid jl7 applied, catheter tip intact. 17:30 Missed attempt(s): 22 gauge in right forearm. Bleeding controlled, band aid applied, mb9 catheter tip intact. 17:45 Initial lab(s) drawn, by ED staff, sent to lab. Inserted saline lock: 20 gauge in left jl7 antecubital area, using aseptic technique. Blood collected. Inserted by TAVON Marcos via US. 17:54 Placed in gown. Bed in low position. Call light in reach. Side rails up X 1. Client mb9 placed on continuous cardiac and pulse oximetry monitoring. NIBP monitoring applied. 19:01 CT Abd/Pelvis - IV Contrast Only In Process Unspecified. EDMS 19:42 Provided Education on: FLUID INTAKE AND F/U. jj7 19:42 No provider procedures requiring assistance completed. IV discontinued, intact, jj7 bleeding controlled, No redness/swelling at site. Pressure dressing applied. Administered Medications: 17:58 Drug: NS 0.9% IV 1000 ml IV at 1 bolus Per protocol; 1000 mL bolus Route: IV; Rate: 1 mb9 bolus; Site: left antecubital; 19:52 Follow up: IV Status: Completed infusion jj7 17:58 Not Given (Patient Refused): ondansetron 4 mg IVP once; over 2 minutes mb9 17:58 Not Given (Patient Refused): morphineor iv 4 mg IVP once over 4 mins mb9 Medication: 19:42 VIS not applicable for this client. jj7 Outcome: 19:22 Discharge ordered by . ec2 19:42 Discharged to home ambulatory, with family, jj7 19:42 Condition: improved 19:42 Discharge instructions given to patient, family, Instructed on discharge instructions, follow up and referral plans. Demonstrated understanding of instructions, follow-up care, 19:54 Patient left the ED. jj7 Signatures: Dispatcher [employer] Evangelina Ontiveros rg4 Analisa Lopez RN RN jl7 Leora Bell RN RN [id number] Will Link RN RN jj7 Sirisha Castaneda RN RN mb9 Ata Chi MD MD ec2
[2023-09-23 20:06] VITALS: TEMP 98.7
[2023-09-23 20:22] VITALS: BP 143/56; O2SAT 100
--- NOTE | 2023-09-24 07:50 | EKG ---
Test Date: 2023-09-23 Test Time: 18:21:03 [place]aser: GUCCI MEASUREMENT RESULTS: Intervals: Rate: 56 RI: 150 QRSD: 80 QT: 434 QTc: 418 [place]: P: 60 RI: 150 QRS: 46 T: 77 INTERPRETIVE STATEMENTS: Sinus bradycardia Nonspecific ST and T wave abnormality Abnormal ECG Compared to ECG 08/03/2021 21:27:58 Sinus rhythm no longer present ST (T wave) deviation still present Electronically Signed On 09-24-23 07:49:24 CDT by Jose Franco
[2023-09-28] MEDS ORDERED: KETOROLAC 30 MG/ML INJ ONE (07:58)
[2023-09-28] MEDS ORDERED: ONDANSETRON 4 MG/2 ML VIAL ONE (07:58)
[2023-09-28] MEDS ORDERED: TAMSULOSIN 0.4 MG SR CAP ONE (07:58)
[2023-09-28] MEDS ORDERED: MORPHINE 2 MG/ML SYR ONE (07:58)
[2023-09-28] MEDS ORDERED: MAGNESIUM SULFATE 1 gm IVPB 1 GM/100 ML BAG IV ONE (07:58)
== END 2023-09-23 19:54 | disposition home or self-care (01) ==
LOC: ER 16:09
DX: R10.12 Left upper quadrant pain (principal); Z87.442 Personal history of urinary calculi
CPT/HCPCS: 96361; 93005; 85025; 81001; 36415; 84484; 83690; 80053; 74177; 96360; 99284; Q9967; J7030; J2405

== ENCOUNTER 2024-05-30 13:46 | Emergency (ER) | payer OTHER ==
--- NOTE | 2024-05-30 15:08 | EDPHYS ---
Physician Documentation [facility] Name: Isha Tran Age: 83 yrs Sex: Female : 1940 Arrival Date: 05/30/2024 Time: 13:46 Bed 14 Private MD: ED Physician Monster Galeano HPI: 05/30 15:07 This 83 yrs old Female presents to ER via Ambulatory with complaints of Covid. kb 15:00 Pt is an 83 year old female who presents for cough, congestion, headache, bodyaches and kb chills that started this morning. States she took a home covid test and it was positive so she came in for medication. Denies shortness of breath, chest pain. Historical: - Allergies: 14:20 No Known Allergies; ph - PMHx: 14:20 Depression; Arthritis; COPD; ph - Immunization history:: Adult Immunizations unknown. - Infectious Disease History:: Denies. - Social history:: Smoking status: Patient denies any tobacco usage or history of. ROS: 15:00 Constitutional: As per HPI kb Exam: 15:00 Constitutional: This is a well developed, well nourished patient who is awake, alert, kb and in no acute distress. Head/Face: Normocephalic, atraumatic. ENT: Moist Mucous membranes Cardiovascular: Regular rate Respiratory: Respirations even and unlabored. No increased work of breathing. Talking in full sentences Abdomen/GI: Soft, non-tender. No distention Skin: Warm, dry with normal turgor. Normal color. MS/ Extremity: Pulses equal, no cyanosis. Neurovascular intact. Full, normal range of motion. Neuro: Awake and alert, GCS 15, oriented to person, place, time, and situation. Moves all extremities. Normal gait. Vital Signs: 14:19 BP 180 / 69; Pulse 73; Resp 18; Temp 99.9; Pulse Ox 100% on R/A; Weight 62.6 kg; Height ph 5 ft. 0 in. ; 15:01 BP 169 / 68; Pulse 85; Resp 18; Pulse Ox 96% on R/A; kj2 14:19 Body Mass Index 26.95 (62.60 kg, 152.4 cm) ph MDM: 14:00 Patient medically screened. kb 15:00 Differential diagnosis: covid, uri, flu, pneumonia. Data reviewed: vital signs, nurses kb notes. I considered the following discharge prescriptions or medication management in the emergency department I discussed and recommended Over The Counter medications, Antibiotics: At this time antibiotics are not recommended, Antivirals: At this time, antivirals are not recommended. Historians other than the Patient: Daughter/Son: son. Counseling: I had a detailed discussion with the patient and/or guardian regarding the historical points, exam findings, and any diagnostic results supporting the discharge/admit diagnosis, radiology results, the need for outpatient follow up, a family practitioner, to return to the emergency department if symptoms worsen or persist or if there are any questions or concerns that arise at home. 15:07 ED course: Pt no longer wants to wait for chest x-ray. Requests discharge. kb Administered Medications: No medications were administered Disposition: 19:03 Co-signature as Attending Physician, Monster Galeano MD I reviewed the patient's care rn provided by the Advanced Practice Provider and agree with the diagnosis and treatment plan. Disposition Summary: 05/30/24 15:07 Discharge Ordered Notes: Location: Home kb Condition: Stable kb Diagnosis - SARS-associated coronavirus as the cause of diseases classified elsewhere kb Followup: kb - With: Emergency Department - When: As needed - Reason: Worsening of condition Followup: kb - With: Private Physician - When: 2 - 3 days - Reason: Recheck today's complaints, Continuance of care, Re-evaluation by your physician Discharge Instructions: - Discharge Summary Sheet kb - COVID-19 kb - Viral Illness, Adult kb Forms: - Medication Reconciliation Form kb - Antibiotic Education kb - Prescription Opioid Use kb - Patient Portal Instructions kb - Leadership Thank You Letter kb Signatures: Dispatcher [employer] Tierney Wu, SPIKE MACHINE OPERATOR-C SPIKE MACHINE OPERATOR-Ckb Monster Galeano MD MD rn Nisha Rudolph RN RN ph
--- NOTE | 2024-05-30 15:08 | ER ---
Nurse's Notes [facility] Name: Isha Tran Age: 83 yrs Sex: Female : 1940 Arrival Date: 05/30/2024 Time: 13:46 Bed 14 Private MD: Diagnosis: SARS-associated coronavirus as the cause of diseases classified elsewhere Presentation: 05/30 14:19 Chief complaint: Patient states: Cough, nasal congestion, body aches, headache, and ph chills that started this morning, + home covid test. Coronavirus screen: Vaccine status: Patient reports receiving the 2nd dose of the covid vaccine. Ebola Screen: No symptoms or risks identified at this time. Initial Sepsis Screen: Does the patient meet any 2 criteria? No. Patient's initial sepsis screen is negative. Does the patient have a suspected source of infection? No. Patient's initial sepsis screen is negative. Risk Assessment: Do you want to hurt yourself or someone else? Patient reports no desire to harm self or others. Onset of symptoms was May 30, 2024. 14:19 Method Of Arrival: Ambulatory ph 14:19 Acuity: LAWRENCE 4 ph Triage Assessment: 14:21 General: Appears in no apparent distress. Behavior is calm, cooperative. Pain: ph Complains of pain in headache and body aches. Historical: - Allergies: 14:20 No Known Allergies; ph - PMHx: 14:20 Depression; Arthritis; COPD; ph - Immunization history:: Adult Immunizations unknown. - Infectious Disease History:: Denies. - Social history:: Smoking status: Patient denies any tobacco usage or history of. Screenin:40 [facility] ED Fall Risk Assessment (Adult) History of falling in the last 3 months, kj2 including since admission No falls in past 3 months (0 pts) Confusion or Disorientation No (0 pts) Intoxicated or Sedated No (0 pts) Impaired Gait No (0 pts) Mobility Assist Device Used Yes (1 pt) Altered Elimination No (0 pt) Score/Fall Risk Level 0 - 2 = Low Risk Oriented to surroundings, Maintained a safe environment, Educated pt \\T\\ family on fall prevention, incl call for assistance when getting out of bed. Abuse screen: Denies threats or abuse. Denies injuries from another. Nutritional screening: No deficits noted. Tuberculosis screening: No symptoms or risk factors identified. Assessment: 14:36 General: Appears uncomfortable, Behavior is calm, cooperative, appropriate for age. kj2 Pain: Denies pain. Neuro: Level of Consciousness is awake, alert, obeys commands, Oriented to person, place, situation, Reports weakness. Neuro: Reports. Cardiovascular: Denies chest pain, Patient's skin is warm and dry. Cardiovascular: Reports fatigue, Respiratory: Airway is patent Respiratory effort is even, unlabored. 15:01 Reassessment: Patient appears in no apparent distress at this time. Patient and/or kj2 family updated on plan of care and expected duration. Pain level reassessed. Patient is alert, oriented x 3, equal unlabored respirations, skin warm/dry/pink. 15:05 Reassessment: Patient appears in no apparent distress at this time. Pt out of her room, nj1 wondering how much longer, this RN provides education. Pt states "im ready for discharge", she does not want to wait on radiology. Vital Signs: 14:19 BP 180 / 69; Pulse 73; Resp 18; Temp 99.9; Pulse Ox 100% on R/A; Weight 62.6 kg; Height ph 5 ft. 0 in. ; 15:01 BP 169 / 68; Pulse 85; Resp 18; Pulse Ox 96% on R/A; kj2 14:19 Body Mass Index 26.95 (62.60 kg, 152.4 cm) ph ED Course: 13:52 Patient arrived in ED. mg5 13:55 Tierney Lloyd [facility]-C [facility]. kb 13:55 Monster Galeano MD is Attending Physician. kb 14:20 Triage completed. ph 14:21 Arm band placed on Patient placed in an exam room, on a stretcher. ph 14:32 Faith Grullon, TAVON is Primary Nurse. kj2 14:41 Patient has correct armband on for positive identification. Bed in low position. Call kj2 light in reach. Adult w/ patient. Provided Education on: call light, fall precautions. 15:05 Notified Nurse Practitioner and/or Physician Calender Operator of see nurses notes. nj1 15:10 No provider procedures requiring assistance completed. nj1 15:10 Patient did not have IV access during this emergency room visit. nj1 Administered Medications: No medications were administered Medication: 15:15 VIS not applicable for this client. nj1 Outcome: 15:07 Discharge ordered by MD. yang 15:10 Discharged to home ambulatory, nj1 15:10 Condition: stable nj1 15:10 Discharge instructions given to patient, Instructed on discharge instructions, follow up and referral plans. Demonstrated understanding of instructions, follow-up care, 15:17 Patient left the ED. nj1 Signatures: Tierney Lloyd, COMBINATION WINDOW INSTALLER-C COMBINATION WINDOW INSTALLER-Nisha Bains, RN RN Priti Bishop RN RN nj1 [place] 5 Faith Grullon, RN RN kj2
[2024-05-30 15:20] VITALS: TEMP 99.9
[2024-05-30 15:36] VITALS: BP 169/68; O2SAT 96
== END 2024-05-30 15:17 | disposition home or self-care (01) ==
LOC: ER 13:46
DX: U07.1 COVID-19 (principal)
CPT/HCPCS: 99282